=== PATIENT | male | born 1945 | race Caucasian/White ===

== ENCOUNTER 2017-09-27 09:38 | Emergency (ER) | payer MEDICARE, OTHER ==
--- NOTE | 2017-09-27 11:53 | EDM.PDOC ---
ED HPI GENERAL MEDICAL PROBLEM - General Chief Complaint: Respiratory Problem Stated Complaint: COUGHING BLOOD Time Seen by Provider: 09/27/17 10:30 Source of Information: Reports: Patient, Family History Limitations: Reports: No Limitations - History of Present Illness INITIAL COMMENTS - FREE TEXT/NARRATIVE: Last 24 hours pt has started to cough up bright red blood. He has no pain in his chest and he has not had a fever. Onset: Today, Other ( coughing up bright red blood. ) Duration: Hour(s): Location: Reports: Chest Associated Symptoms: Reports: Cough, Shortness of Breath, Other (t did have one episode of chilling. ) Chest Pain Score (Numeric/FACES): 2 - Related Data Allergies Allergy/AdvReac Type Severity Reaction Status Date / Time Penicillins Allergy Rash Verified 09/27/17 10:51 Home Meds: Home Meds Citalopram Hydrobromide [Celexa] 40 mg PO BEDTIME 07/31/13 [History] Clopidogrel Bisulfate [Clopidogrel] 75 mg PO BEDTIME 07/31/13 [History] Insulin Glarg,Human.Rec.Analog [LantUS] 20 unit SUBCUT BEDTIME 07/31/13 [History ] Metoprolol Tartrate 25 mg PO BID 07/31/13 [History] Ranitidine HCl [Heartburn Relief 150] 150 mg PO BID 07/31/13 [History] Fish Oil/[place]-3 Fatty Acids [Fish Oil] 1,000 mg PO BID 06/22/15 [History] Aspirin [Adult Low Dose Aspirin EC] 81 mg PO DAILY 06/26/15 [History] Nitroglycerin [Nitrostat] 0.4 mg SL ASDIRECTED PRN 06/26/15 [History] amLODIPine [Norvasc] 10 mg PO DAILY 06/26/15 [History] Allopurinol [Zyloprim] 2 tab PO DAILY 09/27/17 [History] Calcitriol [Rocaltrol] 1 tab PO DAILY 09/27/17 [History] Cholecalciferol (Vitamin D3) [Vitamin D3] 1 tab PO DAILY 09/27/17 [History] Isosorbide Mononitrate [Imdur] 1 tab PO BID 09/27/17 [History] Magnesium Oxide 1 tab PO DAILY 09/27/17 [History] atorvaSTATin [Lipitor] 1 tab PO DAILY 09/27/17 [History] hydrALAZINE [Apresoline] 1 tab PO TID 09/27/17 [History] Past Medical History Cardiovascular History: Reports: CAD, High Cholesterol, Hypertension, SOB on Exertion Respiratory History: Reports: Sleep Apnea Other Respiratory History: IPAP at night Gastrointestinal History: Reports: GERD Genitourinary History: Reports: Chronic Renal Insuffiency Other Genitourinary History: GFR is 17%. Musculoskeletal History: Reports: Gout Psychiatric History: Reports: Depression Endocrine/Metabolic History: Reports: Diabetes, Type II - Infectious Disease History Infectious Disease History: Reports: Chicken Pox, Measles - Past Surgical History HEENT Surgical History: Reports: Tonsillectomy Cardiovascular Surgical History: Reports: Coronary Artery Stent Musculoskeletal Surgical History: Reports: Carpal Tunnel, Shoulder Surgery Social & Family History - Family History Family Medical History: Unobtainable - Tobacco Use Smoking Status *Q: Never Smoker - Recreational Drug Use Recreational Drug Use: No - Living Situation & Occupation Living situation: Reports: , with Spouse Occupation: Retired ED ROS GENERAL - Review of Systems Review Of Systems: See Below Constitutional: Reports: Chills HEENT: Reports: No Symptoms Respiratory: Reports: Sputum, Hemoptysis, Other Cardiovascular: Reports: No Symptoms Endocrine: Reports: No Symptoms GI/Abdominal: Reports: No Symptoms : Reports: No Symptoms Musculoskeletal: Reports: No Symptoms Neurological: Reports: No Symptoms ED EXAM, GENERAL - Physical Exam Exam: See Below Free Text/Narrative:: pt has had progressive sob. Today he has started to cough up blood. He has no pain when he takes a deep breath. He was seen by Dr Ruffin in [place] a few days ago because of the sob. Exam Limited By: No Limitations General Appearance: Alert, No Apparent Distress, Other (pt does drop his o2 sats when he is moving around. ) Ears: Normal TMs Nose: Normal Inspection Throat/Mouth: Normal Inspection Head: Atraumatic Neck: Normal Inspection Respiratory/Chest: Decreased Breath Sounds, Other (pt is obviusly coughing up bloody sputum) Cardiovascular: Regular Rate, Rhythm GI/Abdominal: Soft, Non-Tender (Male) Exam: Deferred Rectal (Males) Exam: Deferred Back Exam: Normal Inspection Extremities: Normal Inspection Neurological: Alert, Oriented, Normal Cognition Course - Vital Signs Last Recorded V/S: Last Vital Signs Temp 36.1 C 09/27/17 10:44 Pulse 50 L 09/27/17 13:16 Resp 14 09/27/17 13:16 BP 145/64 H 09/27/17 13:16 Pulse Ox 97 09/27/17 13:16 - Orders/Labs/Meds Orders: Active Orders 24 hr Category Date Time Status Chest 2V [CR] Stat Exams 09/27/17 11:20 Taken Chest w Cont [CT] Stat Exams 09/27/17 12:28 Stop Req Chest wo Cont [CT] Stat Exams 09/27/17 13:26 Taken VL Duplex Lwr Ext Veins Comp [US] Stat Exams 09/27/17 11:52 Taken CULTURE BLOOD [BC] Urgent Lab 09/27/17 15:29 Ordered CULTURE BLOOD [BC] Urgent Lab 09/27/17 15:29 Ordered CULTURE RESPIRATORY + SMEAR [RM] Stat Lab 09/27/17 15:07 Ordered UA W/MICROSCOPIC [URIN] Urgent Lab 09/27/17 13:29 Ordered Blood Culture x2 Reflex Set [OM.PC] Urgent Oth 09/27/17 15:29 Ordered Labs: Laboratory Tests 09/27/17 09/27/17 09/27/17 Range/Units 11:26 11:26 11:26 WBC 6.4 (4.5-11.0) K/uL RBC 3.51 L (4.30-5.90) M/uL Hgb 10.4 L D (12.0-15.0) g/dL Hct 32.6 L (40.0-54.0) % MCV 93 (80-98) fL MCH 30 (27-31) pg MCHC 32 (32-36) % Plt Count 131 L (150-400) K/uL Neut % (Auto) 71 H (36-66) % Lymph % (Auto) 16 L (24-44) % [place] % (Auto) 9 H (2-6) % Eos % (Auto) 4 (2-4) % Baso % (Auto) 0 (0-1) % APTT (27.0-36.0) sec Sodium 140 (140-148) mmol/L Potassium 4.7 (3.6-5.2) mmol/L Chloride 105 (100-108) mmol/L Carbon Dioxide 26 (21-32) mmol/L Anion Gap 9.4 (5.0-14.0) mmol/L BUN 68 H (7-18) mg/dL Creatinine 4.2 H* (0.8-1.3) mg/dL Est Cr Clr Drug Dosing 20.86 mL/min Estimated GFR (MDRD) 14 L (>60) Glucose 214 H (74-106) mg/dL Calcium 9.6 (8.5-10.1) mg/dL Total Bilirubin 0.5 (0.2-1.0) mg/dL AST 21 (15-37) U/L ALT 33 (12-78) U/L Alkaline Phosphatase 92 (46-116) U/L C-Reactive Protein 3.69 H (0.0-0.3) mg/dL Total Protein 6.5 (6.4-8.2) g/dL Albumin 3.3 L (3.4-5.0) g/dL Globulin 3.2 (2.3-3.5) g/dL Albumin/Globulin Ratio 1.0 L (1.2-2.2) Urine Color Urine Appearance Urine pH (4.5-8.0) Ur Specific [place] (1.008-1.030) Urine Protein (NEGATIVE) mg/dL Urine Glucose (UA) (NEGATIVE) mg/dL Urine Ketones (NEGATIVE) mg/dL Urine Occult Blood (NEGATIVE) Urine Nitrite (NEGAITVE) Urine Bilirubin (NEGATIVE) Urine Urobilinogen (NORMAL) mg/dL Ur Leukocyte Esterase (NEGATIVE) Urine RBC (0-5) Urine WBC (0-5) Ur Epithelial Cells Amorphous Sediment Urine Bacteria Urine Mucus 09/27/17 09/27/17 Range/Units 11:26 13:29 WBC (4.5-11.0) K/uL RBC (4.30-5.90) M/uL Hgb (12.0-15.0) g/dL Hct (40.0-54.0) % MCV (80-98) fL MCH (27-31) pg MCHC (32-36) % Plt Count (150-400) K/uL Neut % (Auto) (36-66) % Lymph % (Auto) (24-44) % [place] % (Auto) (2-6) % Eos % (Auto) (2-4) % Baso % (Auto) (0-1) % APTT 27.6 (27.0-36.0) sec Sodium (140-148) mmol/L Potassium (3.6-5.2) mmol/L Chloride (100-108) mmol/L Carbon Dioxide (21-32) mmol/L Anion Gap (5.0-14.0) mmol/L BUN (7-18) mg/dL Creatinine (0.8-1.3) mg/dL Est Cr Clr Drug Dosing mL/min Estimated GFR (MDRD) (>60) Glucose (74-106) mg/dL Calcium (8.5-10.1) mg/dL Total Bilirubin (0.2-1.0) mg/dL AST (15-37) U/L ALT (12-78) U/L Alkaline Phosphatase (46-116) U/L C-Reactive Protein (0.0-0.3) mg/dL Total Protein (6.4-8.2) g/dL Albumin (3.4-5.0) g/dL Globulin (2.3-3.5) g/dL Albumin/Globulin Ratio (1.2-2.2) Urine Color Yellow Urine Appearance Clear Urine pH 6.0 (4.5-8.0) Ur Specific [place] 1.010 (1.008-1.030) Urine Protein 100 H (NEGATIVE) mg/dL Urine Glucose (UA) 100 H (NEGATIVE) mg/dL Urine Ketones Negative (NEGATIVE) mg/dL Urine Occult Blood Negative (NEGATIVE) Urine Nitrite Negative (NEGAITVE) Urine Bilirubin Negative (NEGATIVE) Urine Urobilinogen Normal (NORMAL) mg/dL Ur Leukocyte Esterase Negative (NEGATIVE) Urine RBC 0-5 (0-5) Urine WBC 0-5 (0-5) Ur Epithelial Cells Rare Amorphous Sediment Not seen Urine Bacteria Not seen Urine Mucus Not seen Meds: Medications Discontinued Medications Generic Name Dose Route Start Last Admin Trade Name Freq PRN Reason Stop Dose Admin Ceftriaxone Sodium 1 gm 09/27/17 15:29 Rocephin IM 09/27/17 15:30 ONETIME ONE - Re-Assessments/Exams Free Text/Narrative Re-Assessment/Exam: 09/27/17 15:33 cat scan of the chest showed bronchopneumonia. His wbc is ok. A doppler was done on both legs which were neg. His creatnine is higher at 4. He often sits at 3.5. 09/27/17 15:35 Departure - Departure Time of Disposition: 15:35 Disposition: DC/Tfer to Acute Hospital 02 Condition: Fair Clinical Impression: Bronchopneumonia, Hemoptysis - Discharge Information Referrals: Teodoro Grullon MD [Primary Care Provider] - Forms: ED Department Discharge Care Plan Goals: to the [facility] by private car. - My Orders Last 24 Hours: My Active Orders 09/27/17 11:20 Chest 2V [CR] Stat 09/27/17 11:52 VL Duplex Lwr Ext Veins Comp [US] Stat 09/27/17 12:28 Chest w Cont [CT] Stat 09/27/17 13:26 Chest wo Cont [CT] Stat 09/27/17 13:29 UA W/MICROSCOPIC [URIN] Urgent 09/27/17 15:07 CULTURE RESPIRATORY + SMEAR [RM] Stat 09/27/17 15:29 CULTURE BLOOD [BC] Urgent CULTURE BLOOD [BC] Urgent Blood Culture x2 Reflex Set [OM.PC] Urgent - Assessment/Plan Last 24 Hours: My Active Orders 09/27/17 11:20 Chest 2V [CR] Stat 09/27/17 11:52 VL Duplex Lwr Ext Veins Comp [US] Stat 09/27/17 12:28 Chest w Cont [CT] Stat 09/27/17 13:26 Chest wo Cont [CT] Stat 09/27/17 13:29 UA W/MICROSCOPIC [URIN] Urgent 09/27/17 15:07 CULTURE RESPIRATORY + SMEAR [RM] Stat 09/27/17 15:29 CULTURE BLOOD [BC] Urgent CULTURE BLOOD [BC] Urgent Blood Culture x2 Reflex Set [OM.PC] Urgent
[2017-09-27] MEDS ORDERED: cefTRIAXone 1 GM Vial IM ONE (15:29)
[2017-09-27] MEDS ORDERED: cefTRIAXone 1 GM, Lidocaine 1% 2.1 ML IM ONE ×2 (15:34)
[2017-09-27 15:59] VITALS: BP 142/54
--- NOTE | 2017-09-29 08:44 | CR ---
CHEST: 2 view CLINICAL HISTORY:Shortness of breath, hemoptysis COMPARISON:2016 FINDINGS: Heart size is normal. There are atherosclerotic changes in the aorta. No infiltrate effusi on or pneumothorax is seen. IMPRESSION: No acute cardiopulmonary process or significant change from prior study
--- NOTE | 2017-09-29 08:52 | US ---
VL Duplex Lwr Ext Veins Comp CLINICAL HISTORY: Bilateral leg pain FINDINGS: Real-time and Doppler images from both inguinal regions through the calves were obtained. A ll veins are compressible from the groin to the calf. There is normal flow documented bilaterally. Th ere is augmentation at all levels IMPRESSION: No evidence of DVT in either lower extremity
== END 2017-09-27 16:24 ==
LOC: JP.ED 09:38
DX: J18.0 Bronchopneumonia, unspecified organism (principal); R04.2 Hemoptysis; I13.10 Hypertensive heart and chronic kidney disease without heart failure, with stage 1 through stage 4 chronic kidney disease, or unspecified chronic kidney disease; E11.22 Type 2 diabetes mellitus with diabetic chronic kidney disease; N18.9 Chronic kidney disease, unspecified; F32.9 Major depressive disorder, single episode, unspecified; E78.00 Pure hypercholesterolemia, unspecified; Z79.4 Long term (current) use of insulin; Z79.82 Long term (current) use of aspirin; Z79.899 Other long term (current) drug therapy; Z88.0 Allergy status to penicillin
CPT/HCPCS: 36415; 71046; 71250; 80053; 81001; 85025; 85730; 86140; 87040; 87070; 87077; 87186; 87205; 93970; 96372; 99284; J0696

== ENCOUNTER 2018-01-10 21:47 | Emergency (ER) | payer MEDICARE, OTHER ==
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
[2018-01-10 23:37] VITALS: BP 153/66
--- NOTE | 2018-01-12 09:16 | CR ---
CHEST: 2 view CLINICAL HISTORY:Dyspnea COMPARISON:09/27/2017 FINDINGS: Heart size and pulmonary vascularity are normal. There are atherosclerotic changes in the aorta. Patient has a right the jugular catheter in the superior vena cava. No infiltrate effusion or pneumothorax seen. IMPRESSION: Right jugular catheter in place No acute cardiopulmonary process
== END 2018-01-10 23:37 | disposition home or self-care (01) ==
LOC: JP.ED 21:47
DX: R07.89 Other chest pain (principal); F41.9 Anxiety disorder, unspecified; S30.1XXA Contusion of abdominal wall, initial encounter; R60.9 Edema, unspecified; I12.9 Hypertensive chronic kidney disease with stage 1 through stage 4 chronic kidney disease, or unspecified chronic kidney disease; N18.9 Chronic kidney disease, unspecified; E11.22 Type 2 diabetes mellitus with diabetic chronic kidney disease; Z79.4 Long term (current) use of insulin; Z79.82 Long term (current) use of aspirin; Z79.899 Other long term (current) drug therapy; Z99.2 Dependence on renal dialysis; Z88.0 Allergy status to penicillin
CPT/HCPCS: 36415; 71046; 71046-26; 80053; 84484; 85025; 93005; 99285-25

== ENCOUNTER 2018-01-14 08:51 | Emergency (ER) | payer MEDICARE, OTHER ==
[2018-01-14 08:56] VITALS: BP 147/44
--- NOTE | 2018-01-14 10:13 | EDM.PDOC ---
ED HPI GENERAL MEDICAL PROBLEM - General Chief Complaint: General Stated Complaint: CATHITER FELL OUT Time Seen by Provider: 01/14/18 10:10 Source of Information: Reports: Patient, Family, RN Notes Reviewed History Limitations: Reports: No Limitations - History of Present Illness INITIAL COMMENTS - FREE TEXT/NARRATIVE: 72-year-old gentleman presents to emergency department today following dislodgment of his dialysis catheter, this occurred while he was brushing his teeth he had minimal bleeding after this event his sutures are still in place he has no complaints he has dialysis today at 1:00 - Related Data Allergies Allergy/AdvReac Type Severity Reaction Status Date / Time Penicillins Allergy Rash Verified 01/10/18 21:54 Home Meds: Home Meds Citalopram Hydrobromide [Celexa] 40 mg PO BEDTIME 07/31/13 [History] Clopidogrel Bisulfate [Clopidogrel] 75 mg PO BEDTIME 07/31/13 [History] Insulin Glarg,Human.Rec.Analog [LantUS] 20 unit SUBCUT BEDTIME 07/31/13 [History ] Metoprolol Tartrate 25 mg PO BID 07/31/13 [History] Ranitidine HCl [Heartburn Relief 150] 150 mg PO BID 07/31/13 [History] Fish Oil/[place]-3 Fatty Acids [Fish Oil] 1,000 mg PO BID 06/22/15 [History] Aspirin [Adult Low Dose Aspirin EC] 81 mg PO DAILY 06/26/15 [History] Nitroglycerin [Nitrostat] 0.4 mg SL ASDIRECTED PRN 06/26/15 [History] amLODIPine [Norvasc] 10 mg PO DAILY 06/26/15 [History] Allopurinol [Zyloprim] 2 tab PO DAILY 09/27/17 [History] Cholecalciferol (Vitamin D3) [Vitamin D3] 1 tab PO DAILY 09/27/17 [History] Isosorbide Mononitrate [Imdur] 1 tab PO BID 09/27/17 [History] atorvaSTATin [Lipitor] 1 tab PO DAILY 09/27/17 [History] hydrALAZINE [Apresoline] 1 tab PO TID 09/27/17 [History] Minoxidil 10 mg PO BEDTIME 01/10/18 [History] Past Medical History Cardiovascular History: Reports: CAD, High Cholesterol, Hypertension, SOB on Exertion Respiratory History: Reports: Sleep Apnea Other Respiratory History: IPAP at night Gastrointestinal History: Reports: GERD Genitourinary History: Reports: Chronic Renal Insuffiency, Other (See Below) Other Genitourinary History: GFR is 17%. dialysis port r chest Musculoskeletal History: Reports: Gout Psychiatric History: Reports: Depression Endocrine/Metabolic History: Reports: Diabetes, Type II - Infectious Disease History Infectious Disease History: Reports: Chicken Pox - Past Surgical History HEENT Surgical History: Reports: Tonsillectomy Cardiovascular Surgical History: Reports: Coronary Artery Stent Musculoskeletal Surgical History: Reports: Carpal Tunnel, Shoulder Surgery Social & Family History - Family History Family Medical History: Unobtainable - Tobacco Use Smoking Status *Q: Never Smoker - Caffeine Use Caffeine Use: Reports: Coffee - Recreational Drug Use Recreational Drug Use: No - Living Situation & Occupation Living situation: Reports: , with Spouse Occupation: Retired ED ROS GENERAL - Review of Systems Review Of Systems: See Below Constitutional: Reports: No Symptoms Respiratory: Reports: No Symptoms Cardiovascular: Reports: No Symptoms Skin: Reports: Wound ED EXAM, GENERAL - Physical Exam Exam: See Below Free Text/Narrative:: Examination of the integument system there is no appreciable bleeding at the site of where the catheter was dislodged sutures are in place Exam Limited By: No Limitations General Appearance: Alert, WD/WN, No Apparent Distress Course - Vital Signs Last Recorded V/S: Last Vital Signs Temp 99.2 F 01/14/18 08:54 Pulse 60 01/14/18 08:54 Resp 18 01/14/18 08:54 BP 147/44 H 01/14/18 08:54 Pulse Ox 98 01/14/18 08:54 Departure - Departure Time of Disposition: 10:22 Disposition: Home, Self-Care 01 Condition: Good Clinical Impression: Dialysis complication Qualifiers: Encounter type: initial encounter Qualified Code(s): T82.9XXA - Unspecified complication of cardiac and vascular prosthetic device, implant and graft, initial encounter - Discharge Information Referrals: Teodoro Grullon MD [Primary Care Provider] - Forms: ED Department Discharge Additional Instructions: Plan is to report to the [facility] for replacement of his dialysis catheter - Assessment/Plan Plan: Assessment Acuity = acute Site and laterality = dialysis catheter dislodgment Etiology = unknown etiology Manifestations = none Location of injury = Home Lab values = none Plan Called discussed case with Dr. Wilkerson of vascular surgeon at the [facility] kindly accepted the patient recommend reporting to the emergency department [facility] and he will initiate placement of a dialysis catheter , also called Dr. Hercules at the [facility] and gave him notification patient is coming as well This note was dictated using [employer] voice recognition software please call with any questions on syntax or grammar.
== END 2018-01-14 10:35 | disposition home or self-care (01) ==
LOC: JP.ED 08:51
DX: T82.42XA Displacement of vascular dialysis catheter, initial encounter (principal); Z88.0 Allergy status to penicillin; Z79.4 Long term (current) use of insulin; Z79.82 Long term (current) use of aspirin; I12.9 Hypertensive chronic kidney disease with stage 1 through stage 4 chronic kidney disease, or unspecified chronic kidney disease; N18.9 Chronic kidney disease, unspecified; E11.22 Type 2 diabetes mellitus with diabetic chronic kidney disease
CPT/HCPCS: 99283

== ENCOUNTER 2021-04-10 16:06 | Emergency (ER) | payer OTHER ==
[2021-04-10] MEDS ORDERED: Prochlorperazine 10 MG/2 ML SDV IVPUSH ONE (17:22)
[2021-04-10] MEDS ORDERED: Sodium Chloride 0.9% 10 ML Syringe FLUSH PRN (17:22)
--- NOTE | 2021-04-10 17:29 | EDM.PDOC ---
ED HPI GENERAL MEDICAL PROBLEM - General Chief Complaint: General Stated Complaint: WEAK, FATIGUED, HX OF HEART ISSUES Time Seen by Provider: 04/10/21 17:10 Source of Information: Reports: Patient, Family, RN History Limitations: Reports: Other (suboptimal historian, limited records available) - History of Present Illness INITIAL COMMENTS - FREE TEXT/NARRATIVE: 75 yo male with CRF on peritoneal dialysis presents with progressive weakness and anorexia for a few weeks. Is unsteady walking today. Has not been eating or drinking much as just the thought of food bothers him. [facility] is [facility] and has [facility]GI scheduled for May. He has not been seen by anyone anywhere since the onset of his current sx's. No fever. He has a mild BERMAN that has been getting more persistent. Onset: Gradual Duration: Week(s):, Getting Worse Location: Reports: Generalized Quality: Reports: Ache (headache) Severity: Mild Improves with: Reports: Medication (acetaminophen reduces it) Worsens with: Reports: Other (time) Context: Reports: Other (see HPI) Associated Symptoms: Reports: Headaches, Loss of Appetite, Malaise, Nausea/Vomiting (no vomiting), Weakness (generalized). 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 neck and lower abdomen Pain Score (Numeric/FACES): 6 - Related Data Allergies Allergy/AdvReac Type Severity Reaction Status Date / Time Penicillins Allergy Rash Verified 04/10/21 16:54 Home Meds: Home Meds Citalopram Hydrobromide [Celexa] 40 mg PO BEDTIME 07/31/13 [History] Clopidogrel Bisulfate [Clopidogrel] 75 mg PO BEDTIME 07/31/13 [History] Insulin Glarg,Human.Rec.Analog [LantUS] 44 unit SUBCUT BEDTIME 07/31/13 [History] Fish Oil/[place]-3 Fatty Acids [Fish Oil] 1,000 mg PO BID 06/22/15 [History] Aspirin [Adult Low Dose Aspirin EC] 81 mg PO DAILY 06/26/15 [History] Nitroglycerin [Nitrostat] 0.4 mg SL ASDIRECTED PRN 06/26/15 [History] Cholecalciferol (Vitamin D3) [Vitamin D3] 1 tab PO DAILY 09/27/17 [History] Isosorbide Mononitrate [Imdur] 60 mg PO DAILY 09/27/17 [History] allopurinoL [Zyloprim] 200 mg PO DAILY 09/27/17 [History] atorvaSTATin [Lipitor] 80 mg PO DAILY 09/27/17 [History] Acetaminophen 325 mg PO Q6H PRN 10/15/18 [History] Calcium Carbonate [Calcium] 500 mg PO DAILY 10/15/18 [History] Folic Acid/Vit Bcomp,C [Renal Vitamin Tablet] 0.8 mg PO DAILY 10/15/18 [History] Furosemide [Lasix] 80 mg PO DAILY 10/15/18 [History] Lidocaine 5% [Lidoderm 5%] 2 patch TOP DAILY 10/15/18 [History] Losartan [Cozaar] 100 mg PO DAILY 10/15/18 [History] Metoprolol Succinate [Toprol XL] 25 mg PO DAILY 10/15/18 [History] traZODone HCl [Trazodone HCl] 50 mg PO BEDTIME 04/10/21 [History] Past Medical History Cardiovascular History: Reports: CAD, High Cholesterol, Hypertension, SOB on E xertion, Stents Respiratory History: Reports: Sleep Apnea Other Respiratory History: IPAP at night Gastrointestinal History: Reports: GERD Genitourinary History: Reports: Chronic Renal Insuffiency, Other (See Below) Other Genitourinary History: GFR is 17%. dialysis port r chest Musculoskeletal History: Reports: Gout Psychiatric History: Reports: Depression Endocrine/Metabolic History: Reports: Diabetes, Type II - Infectious Disease History Infectious Disease History: Reports: Chicken Pox - Past Surgical History HEENT Surgical History: Reports: Tonsillectomy Cardiovascular Surgical History: Reports: Coronary Artery Stent, Percutaneous Transluminal Angioplasty Musculoskeletal Surgical History: Reports: Carpal Tunnel, Shoulder Surgery Social & Family History - Family History Family Medical History: Unobtainable - Tobacco Use Tobacco Use Status *Q: Never Tobacco User - Caffeine Use Caffeine Use: Reports: Coffee - Recreational Drug Use Recreational Drug Use: No - Living Situation & Occupation Living situation: Reports: , with Spouse Occupation: Retired ED ROS GENERAL - Review of Systems Review Of Systems: See Below Constitutional: Reports: Malaise, Weakness, Decreased Appetite. Denies: Fever, Chills HEENT: Reports: No Symptoms Respiratory: Reports: No Symptoms Cardiovascular: Reports: Lightheadedness Endocrine: Reports: No Symptoms GI/Abdominal: Reports: Decreased Appetite, Nausea. Denies: Abdominal Pain, Black Stool, Bloody Stool, Constipation, Diarrhea, Distension, Flatus, Hematemesis, Hematochezia, Melena, Vomiting : Reports: No Symptoms Musculoskeletal: Reports: No Symptoms Skin: Reports: No Symptoms Neurological: Reports: Headache (mild) Psychiatric: Reports: No Symptoms ED EXAM, GENERAL - Physical Exam Exam: See Below Exam Limited By: No Limitations General Appearance: Alert, WD/WN, No Apparent Distress Eye Exam: Bilateral Eye: Normal Inspection Ears: Normal External Exam, Normal Canal, Hearing Loss Ear Exam: Bilateral Ear: Auricle Normal, Canal Normal Nose: Normal Inspection, No Blood Throat/Mouth: Normal Inspection, Normal Lips, Normal Oropharynx, Normal Voice, No Airway Compromise Head: Atraumatic, Normocephalic Neck: Normal Inspection Respiratory/Chest: No Respiratory Distress, Lungs Clear, Normal Breath Sounds, No Accessory Muscle Use Cardiovascular: Regular Rate, Rhythm, No Edema GI/Abdominal: Normal Bowel Sounds, Soft, Non-Tender, No Distention Back Exam: Normal Inspection. No: CVA Tenderness (R), CVA Tenderness (L) Extremities: Normal Inspection, Normal Range of Motion, Non-Tender, No Pedal Edema. No: Pedal Edema Neurological: Alert, Oriented, CN II-XII Intact, Normal Cognition, No Motor/Sensory Deficits Psychiatric: Normal Affect, Normal Mood Skin Exam: Warm, Dry, Intact, Normal Color, No Rash Course - Vital Signs Last Recorded V/S: Last Vital Signs Temp 36.2 C 04/10/21 16:48 Pulse 63 04/10/21 17:20 Resp 13 04/10/21 17:20 BP 127/82 04/10/21 17:20 Pulse Ox 96 04/10/21 17:20 - Orders/Labs/Meds Orders: Active Orders 24 hr Category Date Time Status UA W/MICROSCOPIC [URIN] Stat Lab 04/10/21 17:21 Ordered Sodium Chloride 0.9% [Normal Saline] 1,000 ml Med 04/10/21 18:02 Active IV .BOLUS Sodium Chloride 0.9% [Saline Flush] Med 04/10/21 17:22 Active 10 ml FLUSH ASDIRECTED PRN Saline Lock Insert [OM.PC] Routine Oth 04/10/21 17:22 Ordered Medication Orders Sodium Chloride (Normal Saline) 1,000 mls @ 1,000 mls/hr IV .BOLUS ONE Stop: 04/10/21 19:01 Last Admin: 04/10/21 18:10 Dose: 1,000 mls/hr Documented by: PREILOR Sodium Chloride (Sodium Chloride 0.9% 10 Ml Syringe) 10 ml FLUSH ASDIRECTED PRN PRN Reason: Keep Vein Open Last Admin: 04/10/21 17:43 Dose: 10 ml Documented by: PREILOR Labs: Laboratory Tests 04/10/21 04/10/21 04/10/21 Range/Units 17:23 17:28 17:31 WBC (4.5-11.0) K/uL RBC (4.30-5.90) M/uL Hgb (12.0-15.0) g/dL Hct (40.0-54.0) % MCV (80-98) fL MCH (27-31) pg MCHC (32-36) % Plt Count (150-400) K/uL Sodium (140-148) mmol/L Potassium (3.6-5.2) mmol/L Chloride (100-108) mmol/L Carbon Dioxide (21-32) mmol/L Anion Gap (5.0-14.0) mmol/L BUN (7-18) mg/dL Creatinine (0.8-1.3) mg/dL Est Cr Clr Drug Dosing mL/min Estimated GFR (MDRD) (>60) Glucose (74-106) mg/dL Calcium (8.5-10.1) mg/dL Phosphorus 7.4 H (2.5-4.9) mg/dL Troponin I High Sens 11.1 (<=60.3) pg/mL C-Reactive Protein 13.18 H (0.0-0.3) mg/dL 04/10/21 04/10/21 Range/Units 17:32 17:32 WBC 9.4 (4.5-11.0) K/uL RBC 2.87 L (4.30-5.90) M/uL Hgb 9.3 L (12.0-15.0) g/dL Hct 27.5 L (40.0-54.0) % MCV 96 (80-98) fL MCH 32 H (27-31) pg MCHC 34 (32-36) % Plt Count 108 L (150-400) K/uL Sodium 130 L (140-148) mmol/L Potassium 4.4 (3.6-5.2) mmol/L Chloride 91 L (100-108) mmol/L Carbon Dioxide 20 L (21-32) mmol/L Anion Gap 23.4 H (5.0-14.0) mmol/L BUN 106 H* D (7-18) mg/dL Creatinine 11.7 H* D (0.8-1.3) mg/dL Est Cr Clr Drug Dosing 7.05 mL/min Estimated GFR (MDRD) 4 L (>60) Glucose 213 H (74-106) mg/dL Calcium 7.8 L (8.5-10.1) mg/dL Phosphorus (2.5-4.9) mg/dL Troponin I High Sens (<=60.3) pg/mL C-Reactive Protein (0.0-0.3) mg/dL Meds: Medications Generic Name Dose Route Start Last Admin Trade Name Freq PRN Reason Stop Dose Admin Sodium Chloride 1,000 mls @ 1,000 mls/hr 04/10/21 18:02 04/10/21 18:10 Normal Saline IV 04/10/21 19:01 1,000 mls/hr .BOLUS ONE Administration Sodium Chloride 10 ml 04/10/21 17:22 04/10/21 17:43 Sodium Chloride 0.9% 10 Ml Syringe FLUSH 10 ml ASDIRECTED PRN Administration Keep Vein Open Discontinued Medications Generic Name Dose Route Start Last Admin Trade Name Freq PRN Reason Stop Dose Admin Prochlorperazine Edisylate 5 mg 04/10/21 17:22 04/10/21 17:43 Prochlorperazine 10 Mg/2 Ml Sdv IVPUSH 04/10/21 17:23 5 mg ONETIME ONE Administration Departure - Departure Time of Disposition: 19:05 Disposition: Home, Self-Care 01 Condition: Fair Clinical Impression: Azotemia Acute on chronic renal failure Qualifiers: Acute renal failure type: unspecified Chronic kidney disease stage: on chronic dialysis Qualified Code(s): N17.9 - Acute kidney failure, unspecified; N18.9 - Chronic kidney disease, unspecified; Z99.2 - Dependence on renal dialysis - Discharge Information *PRESCRIPTION DRUG MONITORING PROGRAM REVIEWED*: Not Applicable *COPY OF PRESCRIPTION DRUG MONITORING REPORT IN PATIENT RADHA: Not Applicable Referrals: Nevin Tripathi NP [Primary Care Provider] - Forms: ED Department Discharge Additional Instructions: Switch dialysis equipment as discussed in ER. See your general agent tomorrow for further guidance. Sepsis Event Note (ED) - Evaluation Sepsis Screening Result: No Definite Risk - Focused Exam Vital Signs: Vital Signs Temp Pulse Resp BP Pulse Ox 04/10/21 17:20 63 13 127/82 96 04/10/21 16:48 36.2 C 65 17 122/46 L 97 04/10/21 16:23 36.2 C 65 17 122/46 L 97 - My Orders Last 24 Hours: My Active Orders 04/10/21 17:21 UA W/MICROSCOPIC [URIN] Stat 04/10/21 17:22 Sodium Chloride 0.9% [Saline Flush] 10 ml FLUSH ASDIRECTED PRN Saline Lock Insert [OM.PC] Routine 04/10/21 18:02 Sodium Chloride 0.9% [Normal Saline] 1,000 ml IV .BOLUS - Assessment/Plan Last 24 Hours: My Active Orders 04/10/21 17:21 UA W/MICROSCOPIC [URIN] Stat 04/10/21 17:22 Sodium Chloride 0.9% [Saline Flush] 10 ml FLUSH ASDIRECTED PRN Saline Lock Insert [OM.PC] Routine 04/10/21 18:02 Sodium Chloride 0.9% [Normal Saline] 1,000 ml IV .BOLUS
[2021-04-10 17:34] VITALS: BP 127/82; PULSE 63
[2021-04-10] MEDS ORDERED: Sodium Chloride 0.9% 1,000 ML IV ONE (18:02)
== END 2021-04-10 19:13 | disposition home or self-care (01) ==
LOC: JP.ED 16:06
DX: R79.89 Other specified abnormal findings of blood chemistry (principal); I12.0 Hypertensive chronic kidney disease with stage 5 chronic kidney disease or end stage renal disease; E11.22 Type 2 diabetes mellitus with diabetic chronic kidney disease; N18.6 End stage renal disease; N17.9 Acute kidney failure, unspecified; I25.10 Atherosclerotic heart disease of native coronary artery without angina pectoris; E78.00 Pure hypercholesterolemia, unspecified; M10.9 Gout, unspecified; Z99.2 Dependence on renal dialysis; Z88.0 Allergy status to penicillin; Z79.4 Long term (current) use of insulin; Z79.82 Long term (current) use of aspirin; Z79.899 Other long term (current) drug therapy
CPT/HCPCS: 36415; 80048; 84100; 84484; 85027; 86140; 96374; 99284; J0780; J7030

== ENCOUNTER 2022-02-03 14:59 | Emergency (ER) | payer OTHER, MEDICARE ==
[2022-02-03] MEDS ORDERED: traMADol 50 MG Tab ONE (15:30)
[2022-02-28 19:25] LABS: ESTIMATED GFR 5 mL/min (>60)
== END 2022-02-03 17:00 | disposition home or self-care (01) ==
LOC: JP.ED 14:59
DX: S92.342A Displaced fracture of fourth metatarsal bone, left foot, initial encounter for closed fracture (principal); S40.022A Contusion of left upper arm, initial encounter; I12.9 Hypertensive chronic kidney disease with stage 1 through stage 4 chronic kidney disease, or unspecified chronic kidney disease; N18.9 Chronic kidney disease, unspecified; N17.9 Acute kidney failure, unspecified; Z99.2 Dependence on renal dialysis; X58.XXXA Exposure to other specified factors, initial encounter
CPT/HCPCS: 36415; 71250; 73060; 73630; 74176; 80053; 83690; 85025; 85610; 85730; 93005; 99284; A9270

== ENCOUNTER 2022-06-03 21:18 | Emergency (ER) | payer OTHER, MEDICARE ==
[2022-06-03 21:47] VITALS: BP 140/50; PULSE 80
[2022-06-03] MEDS ORDERED: hydrOXYzine HCL 100 MG/2 ML SDV IM ONE (22:03)
== END 2022-06-03 22:49 | disposition home or self-care (01) ==
LOC: JP.ED 21:18
DX: L29.9 Pruritus, unspecified (principal); I25.10 Atherosclerotic heart disease of native coronary artery without angina pectoris; E78.00 Pure hypercholesterolemia, unspecified; E11.22 Type 2 diabetes mellitus with diabetic chronic kidney disease; I12.9 Hypertensive chronic kidney disease with stage 1 through stage 4 chronic kidney disease, or unspecified chronic kidney disease; N18.9 Chronic kidney disease, unspecified; K21.9 Gastro-esophageal reflux disease without esophagitis; Z88.0 Allergy status to penicillin; Z79.82 Long term (current) use of aspirin; Z79.4 Long term (current) use of insulin; Z95.5 Presence of coronary angioplasty implant and graft
CPT/HCPCS: 96372; 99282; J3410